=== PATIENT | male | born 1980 | race Two or more races ===

== ENCOUNTER 2024-03-14 18:44 | Emergency (ER) | payer MEDICAID, OTHER ==
[~2024-03-14] VITALS: Ht 182.9 cm; Wt 95.3 kg
[2024-03-14 19:31] VITALS: BP 136/91; PULSE 104; RESP 17; O2SAT 98
[2024-03-14] MEDS ORDERED: CYCL-837 PO (22:41)
[2024-03-14] MEDS ORDERED: IBUP-1455 PO (22:41)
== END 2024-03-15 00:58 | disposition home or self-care (01) ==
LOC: ER 18:44
DX: M25.532 Pain in left wrist (principal); M54.50 Low back pain, unspecified; V49.9XXA Car occupant (driver) (passenger) injured in unspecified traffic accident, initial encounter; Y93.89 Activity, other specified; Y92.89 Other specified places as the place of occurrence of the external cause; Y99.8 Other external cause status
CPT/HCPCS: 72100; 73110